=== PATIENT | female | born 1985 | race Caucasian/White ===

== ENCOUNTER 2017-01-22 22:10 | Emergency (ER) | payer OTHER | END 2017-01-22 23:35 | disposition home or self-care (01) | LOC: D.ER 22:10 | DX: S63.501A Unspecified sprain of right wrist, initial encounter (principal); W19.XXXA Unspecified fall, initial encounter; Y93.01 Activity, walking, marching and hiking; Y92.89 Other specified places as the place of occurrence of the external cause; E28.2 Polycystic ovarian syndrome; M25.531 Pain in right wrist ==